=== PATIENT | female | born 1945 | race Caucasian/White ===

== ENCOUNTER 2019-12-30 09:57 | Outpatient (RCR) | payer MEDICARE, OTHER, SELFPAY | END 2020-01-11 23:59 | disposition home or self-care (01) | LOC: WOUND 09:57 | PROVIDERS: Visit Provider Nurse Practitioner Family | DX: I89.0 Lymphedema, not elsewhere classified (principal); L85.3 Xerosis cutis | CPT/HCPCS: 99212; A6545 ==